=== PATIENT | female | born 1945 | race Caucasian/White ===

== ENCOUNTER 2018-08-10 11:25 | Day surgery (SDC) | payer MEDICARE, OTHER ==
[~2018-08-10] VITALS: Ht 157.5 cm; Wt 79.9 kg
[~2018-08-10 11:25] MED LIST: ALLEGRA ALLERG180 MG PO; ASPI81CH PO; CLARITIN10 MG PO; ELIQUIS5 MG PO; FLONASE ALLERG9.9 ML NS; Flecainide Acet50 MG PO; GABA100 PO; LISI5 PO; LOSA25 PO; METO25ER PO; Omeprazole20 M1 PO; ROSU5 PO; Toprol Xl25 MG PO; ZOLP5 PO; Zegerid 40 MG1 EACH PO
[2018-08-10] MEDS ORDERED: LISI20 (12:18)
== END 2018-08-10 15:25 | disposition home or self-care (01) ==
LOC: ORSCSDS 11:25
PROVIDERS: Podiatrist Foot & Ankle Surgery
PROC: 0QSN04Z Reposition Right Metatarsal with Internal Fixation Device, Open Approach (ICD-10-PCS; principal; 2018-08-10 12:30)
PROC: 0QSQ04Z Reposition Right Toe Phalanx with Internal Fixation Device, Open Approach (ICD-10-PCS; principal; 2018-08-10 12:30)
DX: M20.11 Hallux valgus (acquired), right foot (principal); M20.60 Acquired deformities of toe(s), unspecified, unspecified foot; I48.91 Unspecified atrial fibrillation; I10 Essential (primary) hypertension; K21.9 Gastro-esophageal reflux disease without esophagitis; E78.00 Pure hypercholesterolemia, unspecified; I50.9 Heart failure, unspecified; Z79.899 Other long term (current) drug therapy
CPT/HCPCS: C1713; C1769; J0690; J1100; J2370; J2405; J2765; J3010; J7120

== ENCOUNTER 2019-08-22 17:05 | Emergency (ER) | payer MEDICARE, OTHER ==
[~2019-08-22] VITALS: Ht 154.9 cm; Wt 81.7 kg
[~2019-08-22 17:05] MED LIST changes: +Flonase 0.05% N16 GM; +Flovent Diskus50 MCG INH; +LISI20; +LORA1SY PO; +Metoprolol Succ25 MG PO
[2019-08-22 18:16] LABS: BASOPHILS ABSOLUTE AUTO 0.04 K/mm3 (0.00-0.23); BASOPHILS PERCENT AUTO 1 % (0-2); EOSINOPHILS ABSOLUTE AUTO 0.19 K/mm3 (0.00-0.68); EOSINOPHILS PERCENT AUTO 3 % (0-6); Hematocrit 38.1 % (33.0-51.0); Hemoglobin 12.8 g/dL (11.5-16.0); IMMATURE GRAN PERCENT AUTO 0 % (0-1); LYMPHOCYTES ABSOLUTE AUTO 1.27 K/mm3 (0.84-5.20); LYMPHOCYTES PERCENT AUTO 22 % (21-46); MONOCYTES ABSOLUTE AUTO 0.38 K/mm3 (0.16-1.47); MONOCYTES PERCENT AUTO 7 % (4-13); Mean Corpuscular HGB 32.1 pg (26.0-34.0); Mean Corpuscular HGB Conc 33.6 g/dL (31.5-36.5); Mean Corpuscular Volume 96 fL (80-100); Mean Platelet Volume 9.4 fL (9.1-12.4); NEUTROPHILS PERCENT AUTO 67 % (41-73); Platelet Count 237 K/mm3 (150-400); Red Blood Cell Count 3.99 M/mm3 (3.80-5.20); White Blood Cell Count 5.68 K/mm3 (4.00-11.30)
[2019-08-22 18:28] LABS: Alanine Aminotransfer (ALT/SGP 22 U/L (12-78); Albumin, Blood 3.4 g/dL (3.4-5.0); Albumin/Globulin Ratio 0.9 (0.8-1.8); Alk Phos 75 U/L (50-136); Anion Gap 8 mmol/L (6-16); Aspartate Aminotrans (AST/SGOT 22 U/L (12-37); Bilirubin, Total 0.3 mg/dL (0.1-1.0); Blood Urea Nitrogen 30 mg/dL (8-24); Bun/Creatinine Ratio 31.6 (12.0-20.0); CO2, Blood 22 mmol/L (21-32); Chloride, Blood 108 mmol/L (98-108); Creatinine, Blood 0.95 mg/dL (0.40-1.00); Globulin, Blood 3.7 g/dL (2.2-4.0); Glomerular Filtration Rate >60 (60-); Glucose, Blood 138 mg/dL (70-99); Potassium, Blood 4.1 mmol/L (3.5-5.5); Sodium, Blood 138 mmol/L (136-145); Total Protein, Blood 7.1 g/dL (6.4-8.2); Troponin I <0.015 ng/mL (0.000-0.040)
[2019-08-22 18:58] LABS: Source, Urine Clean Catch
[2019-08-22 19:08] LABS: Bilirubin, Urine Neg (Neg); Blood, Urine 2+ (Neg); Glucose Qualitative, Urine Neg (Neg); Ketones, Urine 2+ (Neg); Leukocyte Esterase, Urine 1+ (Neg); Nitrite, Urine Neg (Neg); Protein, Urine 1+ (Neg); Urobilinogen, Urine NORM (Normal)
[2019-08-22 19:11] LABS: Appearance, Urine Hazy (Clear); Color, Urine Yellow (P-Yellow)
[2019-08-22] MEDS ORDERED: Allegra-D 24 H1 EACH PO (19:13)
[2019-08-22 19:15] LABS: Bacteria Mod /hpf; Squamous Epithelial Cells Rare /hpf (Few)
== END 2019-08-22 19:52 | disposition home or self-care (01) ==
LOC: ER 17:05
PROVIDERS: Emergency Medicine
DX: R10.9 Unspecified abdominal pain (principal); I48.91 Unspecified atrial fibrillation; Z91.040 Latex allergy status; Z79.899 Other long term (current) drug therapy; Z79.01 Long term (current) use of anticoagulants
CPT/HCPCS: 74176; 80053; 81001; 83690; 83735; 84484; 85025; 87086; 96361; 96374; 96375; 99284-25; A9270; A9270-GY; J1170; J1885; J2405; J7030

== ENCOUNTER → 2019-08-31 | Outpatient (CLI) | payer MEDICARE, OTHER ==
[~2019-08-31] MED LIST changes: +Allegra-D 24 H1 EACH PO
== END | disposition home or self-care (01) ==
LOC: PLD 07:32 → LAB SHORT 07:32
DX: D48.5 Neoplasm of uncertain behavior of skin (principal)
CPT/HCPCS: 88305

== ENCOUNTER → 2020-01-02 | Outpatient (CLI) | payer MEDICARE, OTHER ==
[2020-01-02 12:51] LABS: BASOPHILS ABSOLUTE AUTO 0.04 K/mm3 (0.00-0.23); BASOPHILS PERCENT AUTO 1 % (0-2); EOSINOPHILS ABSOLUTE AUTO 0.06 K/mm3 (0.00-0.68); EOSINOPHILS PERCENT AUTO 1 % (0-6); Hematocrit 34.6 % (33.0-51.0); Hemoglobin 11.6 g/dL (11.5-16.0); IMMATURE GRAN ABSOLUTE AUTO 0.02 K/mm3 (0.00-0.10); IMMATURE GRAN PERCENT AUTO 0 % (0-1); LYMPHOCYTES ABSOLUTE AUTO 1.09 K/mm3 (0.84-5.20); LYMPHOCYTES PERCENT AUTO 13 % (21-46); MONOCYTES ABSOLUTE AUTO 0.67 K/mm3 (0.16-1.47); MONOCYTES PERCENT AUTO 8 % (4-13); Mean Corpuscular HGB 31.4 pg (26.0-34.0); Mean Corpuscular HGB Conc 33.5 g/dL (31.5-36.5); Mean Corpuscular Volume 94 fL (80-100); Mean Platelet Volume 9.2 fL (9.1-12.4); NEUTROPHILS ABSOLUTE AUTO 6.53 K/mm3 (1.96-9.15); NEUTROPHILS PERCENT AUTO 78 % (41-73); Platelet Count 326 K/mm3 (150-400); RDW Coefficient Variation 12.8 % (11.7-14.2); RDW Standard Deviation 44.5 fL (35.1-46.3); Red Blood Cell Count 3.69 M/mm3 (3.80-5.20); White Blood Cell Count 8.41 K/mm3 (4.00-11.30)
[2020-01-02 13:00] LABS: Alanine Aminotransfer (ALT/SGP 56 U/L (12-78); Albumin, Blood 3.1 g/dL (3.4-5.0); Albumin/Globulin Ratio 0.6 (0.8-1.8); Alk Phos 131 U/L (40-126); Anion Gap 12 mmol/L (6-16); Aspartate Aminotrans (AST/SGOT 54 U/L (12-37); Bilirubin, Total 0.5 mg/dL (0.1-1.0); Blood Urea Nitrogen 11 mg/dL (8-24); Bun/Creatinine Ratio 12.9 (12.0-20.0); CO2, Blood 26 mmol/L (21-32); Calcium, Blood 8.8 mg/dL (8.5-10.1); Chloride, Blood 98 mmol/L (98-108); Creatinine, Blood 0.85 mg/dL (0.40-1.00); Glomerular Filtration Rate >60 (60-); Glucose, Blood 99 mg/dL (70-99); Potassium, Blood 3.4 mmol/L (3.5-5.5); Sodium, Blood 136 mmol/L (136-145); Total Protein, Blood 8.1 g/dL (6.4-8.2)
== END | disposition home or self-care (01) ==
LOC: LAB SHORT 12:46 → LAB EV 12:46
PROVIDERS: Physician Assistant
DX: R10.9 Unspecified abdominal pain (principal)
CPT/HCPCS: 80053; 83690; 85025

== ENCOUNTER → 2020-01-26 | Outpatient (CLI) | payer MEDICARE, OTHER | END | disposition home or self-care (01) | LOC: PLD 07:45 → LAB SHORT 07:45 | DX: D48.5 Neoplasm of uncertain behavior of skin (principal) | CPT/HCPCS: 88305 ==

== ENCOUNTER 2020-02-07 07:02 | Day surgery (SDC) | payer MEDICARE, OTHER ==
[~2020-02-07] VITALS: Wt 79.6 kg
--- NOTE | 2020-02-07 08:19 | NUR ---
RECEIVED REPORT FROM CHARLES GERMAN. TRANSFERRED PT TO RADIOLOGY VIA [facility].
--- NOTE | 2020-02-07 08:30 | NUR ---
0.4 MG NITRO SL X 1 FOR BP 128/79
--- NOTE | 2020-02-07 09:10 | NUR ---
Patient up to Ambulate independently. Gait steady. Discharge instructions reviewed with patient. Patient verbalizes understanding. Copy given to patient to take home. Discharged via AMBULATION to private car for ride home.
== END 2020-02-07 09:03 | disposition home or self-care (01) ==
LOC: ORD 07:02 → CT 07:02 → ORD 07:30 → CT 08:00 → ORD 09:03
DX: I25.10 Atherosclerotic heart disease of native coronary artery without angina pectoris (principal); I48.0 Paroxysmal atrial fibrillation; I10 Essential (primary) hypertension; E78.00 Pure hypercholesterolemia, unspecified; J18.0 Bronchopneumonia, unspecified organism; K76.89 Other specified diseases of liver; G47.33 Obstructive sleep apnea (adult) (pediatric); R63.5 Abnormal weight gain; Z68.33 Body mass index [BMI] 33.0-33.9, adult; Z79.899 Other long term (current) drug therapy; Z91.040 Latex allergy status; Z79.01 Long term (current) use of anticoagulants
CPT/HCPCS: 75574; Q9967

== ENCOUNTER 2020-02-19 09:36 | Emergency (ER) | payer MEDICARE, OTHER ==
[~2020-02-19] VITALS: Ht 167.6 cm; Wt 77.1 kg
[2020-02-19] MEDS ORDERED: ATOR20 PO (10:17)
[2020-02-19] MEDS ORDERED: NITROGLYCERIN 0.4 MG (10:17)
[2020-02-19] MEDS ORDERED: NITR.4SL SL (10:17)
[2020-02-19] MEDS ORDERED: XARELTO20 M1 PO (10:18)
[2020-02-19] MEDS ORDERED: METOPROLOL SUCC ER 5 (10:18)
[2020-02-19] MEDS ORDERED: LISI20 PO (10:19)
[2020-02-19] MEDS ORDERED: Flecainide Acet50 MG PO (10:20)
[2020-02-19] MEDS ORDERED: OMEP20ER PO (10:20)
[2020-02-19] MEDS ORDERED: GABA100 PO (10:21)
[2020-02-19] MEDS ORDERED: Flonase 0.05% N16 GM (10:22)
[2020-02-19] MEDS ORDERED: Oxycodone HCl5 M1 PO (10:23)
[2020-02-19 10:24] LABS: BASOPHILS ABSOLUTE AUTO 0.05 K/mm3 (0.00-0.23); BASOPHILS PERCENT AUTO 1 % (0-2); EOSINOPHILS PERCENT AUTO 2 % (0-6); Hematocrit 38.4 % (33.0-51.0); Hemoglobin 12.5 g/dL (11.5-16.0); IMMATURE GRAN ABSOLUTE AUTO 0.01 K/mm3 (0.00-0.10); IMMATURE GRAN PERCENT AUTO 0 % (0-1); LYMPHOCYTES ABSOLUTE AUTO 1.66 K/mm3 (0.84-5.20); LYMPHOCYTES PERCENT AUTO 19 % (21-46); MONOCYTES ABSOLUTE AUTO 0.54 K/mm3 (0.16-1.47); MONOCYTES PERCENT AUTO 6 % (4-13); Mean Corpuscular HGB 29.8 pg (26.0-34.0); Mean Corpuscular HGB Conc 32.6 g/dL (31.5-36.5); Mean Corpuscular Volume 92 fL (80-100); Mean Platelet Volume 9.2 fL (9.1-12.4); NEUTROPHILS ABSOLUTE AUTO 6.08 K/mm3 (1.96-9.15); NEUTROPHILS PERCENT AUTO 71 % (41-73); Platelet Count 282 K/mm3 (150-400); RDW Coefficient Variation 13.6 % (11.7-14.2); RDW Standard Deviation 46.2 fL (35.1-46.3); Red Blood Cell Count 4.19 M/mm3 (3.80-5.20); White Blood Cell Count 8.54 K/mm3 (4.00-11.30)
[2020-02-19 10:40] LABS: Alanine Aminotransfer (ALT/SGP 24 U/L (12-78); Albumin, Blood 3.2 g/dL (3.4-5.0); Albumin/Globulin Ratio 0.8 (0.8-1.8); Alk Phos 126 U/L (50-136); Anion Gap 6 mmol/L (6-16); Aspartate Aminotrans (AST/SGOT 23 U/L (12-37); Bilirubin, Total 0.4 mg/dL (0.1-1.0); Blood Urea Nitrogen 23 mg/dL (8-24); Bun/Creatinine Ratio 26.8 (12.0-20.0); CO2, Blood 24 mmol/L (21-32); Calcium, Blood 9.1 mg/dL (8.5-10.1); Chloride, Blood 106 mmol/L (98-108); Creatinine, Blood 0.86 mg/dL (0.40-1.00); Globulin, Blood 4.2 g/dL (2.2-4.0); Glomerular Filtration Rate >60 (60-); Glucose, Blood 109 mg/dL (70-99); Potassium, Blood 4.1 mmol/L (3.5-5.5); Sodium, Blood 136 mmol/L (136-145); Total Protein, Blood 7.4 g/dL (6.4-8.2); Troponin I <0.015 ng/mL (0.000-0.040)
== END 2020-02-19 14:04 | disposition home or self-care (01) ==
LOC: ER 09:36
PROVIDERS: Emergency Medicine
DX: R07.9 Chest pain, unspecified (principal); R10.11 Right upper quadrant pain; I48.91 Unspecified atrial fibrillation; I25.10 Atherosclerotic heart disease of native coronary artery without angina pectoris; Z91.040 Latex allergy status; Z79.899 Other long term (current) drug therapy
CPT/HCPCS: 71046; 80053; 83690; 84484; 85025; 93005; 93010; 99285-25; A9270-GY

== ENCOUNTER 2020-03-14 06:54 | Day surgery (SDC) | payer MEDICARE, OTHER ==
[~2020-03-14] VITALS: Ht 154.9 cm; Wt 81.0 kg
[~2020-03-14 06:54] MED LIST changes: +ALBU90OI INH; +ATOR20 PO; +Isosorbide Mono30 MG; +LISI20 PO; +METOPROLOL SUCC ER 5 PO; +NITR.4SL SL; +NITROGLYCERIN 0.4 MG; +OMEP20ER PO; +Oxycodone HCl5 M1 PO; +XARELTO20 M1 PO
[2020-03-14] MEDS ORDERED: METO50ER PO (07:49)
--- NOTE | 2020-03-14 09:40 | NUR ---
PT TO RECOVERY POST PROCEUDRE. PT IS DROWSY, BUT CONVERSING APPROPRIATELY, DENIES PAIN OR DISCOMFORT. MONITOR SR 60'S, B/P 111/72, AFEBRILE, SPO2 95-97% RA. R RADIAL SITE NO SWELLING/HEMATOMA, TR BAND IN PLACE.
--- NOTE | 2020-03-14 12:38 | NUR ---
PT AMB TO THE BATHROOM, GAIT STEADY; SITE UNCHANGED WITH ACTIVITY. PT DRESSING SELF WITHOUT ISSUE.
--- NOTE | 2020-03-14 12:49 | NUR ---
TR BAND REMOVED, CLOTH DOT AND WRIST IMMOBILIZER PLACED-IV REMOVED, CANNULA INTACT. PT HAVING EVENT MONITOR PLACED PRIOR TO DISCHARGE.
--- NOTE | 2020-03-14 13:03 | NUR ---
PT HAD EVENT MONITOR PLACED. PT RECEIVED DISCHARGE INSTRUCTIONS, SITE MANAGEMENT, MED LIST AND AFTER CARE INSTRUCTIONS; VERBALIZED GOOD UNDERSTANDING. PT LEFT FACILITY VIA W/C, CONDITION STABLE.
== END 2020-03-14 13:03 | disposition home or self-care (01) ==
LOC: MHTC 06:54
DX: I25.119 Atherosclerotic heart disease of native coronary artery with unspecified angina pectoris (principal); I10 Essential (primary) hypertension; I48.0 Paroxysmal atrial fibrillation; E78.5 Hyperlipidemia, unspecified; R94.30 Abnormal result of cardiovascular function study, unspecified; K21.9 Gastro-esophageal reflux disease without esophagitis; Z79.899 Other long term (current) drug therapy; Z79.51 Long term (current) use of inhaled steroids; Z79.82 Long term (current) use of aspirin; Z79.01 Long term (current) use of anticoagulants; Z87.891 Personal history of nicotine dependence
CPT/HCPCS: 76937; 85347; 93454; 93571; 99152; 99153; C1769; C1887; C1894; J1644; J2250; J3010; J7030; Q9967

== ENCOUNTER 2020-08-11 07:30 | Day surgery (SDC) | payer MEDICARE, OTHER ==
[~2020-08-11] VITALS: Ht 157.5 cm; Wt 79.5 kg
[~2020-08-11 07:30] MED LIST changes: +ALLEGRA ALLERGY60 MG PO; +FLUT.05NI; +METO50ER PO; +Prinivil10 MG PO
--- NOTE | 2020-08-11 10:30 | NUR ---
08/11/20 1030 Majo Monteiro PT RESTING COMFORTABLY IN CHAIR, CALL LIGHT WITHIN REACH. PT DENIES PAIN OR NAUSEA AT THIS TIME. TOLERATING PO INTAKE.
== END 2020-08-11 11:09 | disposition home or self-care (01) ==
LOC: ORSCSDS 07:30
PROVIDERS: Podiatrist Foot & Ankle Surgery
PROC: 0SGP04Z Fusion of Right Toe Phalangeal Joint with Internal Fixation Device, Open Approach (ICD-10-PCS; principal; 2020-08-11 08:45)
DX: M20.5X1 Other deformities of toe(s) (acquired), right foot (principal); I10 Essential (primary) hypertension; I48.91 Unspecified atrial fibrillation; Z79.01 Long term (current) use of anticoagulants; G47.33 Obstructive sleep apnea (adult) (pediatric); E78.5 Hyperlipidemia, unspecified; Z79.899 Other long term (current) drug therapy
CPT/HCPCS: C1713; J0171; J0690; J1100; J1200; J2405; J2704; J3010; J7120

== ENCOUNTER → 2020-09-05 | Outpatient (CLI) | payer MEDICARE, OTHER | LOC: PLD 10:52 → LAB SHORT 10:52 | DX: D48.5 Neoplasm of uncertain behavior of skin (principal) | CPT/HCPCS: 88305 ==

== ENCOUNTER → 2021-12-26 | Outpatient (CLI) | payer MEDICARE, OTHER ==
[2021-12-26 08:29] LABS: Source, Urine Clean Catch
[2021-12-26 12:06] LABS: Bilirubin, Urine Neg (Neg); Color, Urine Yellow (P-Yellow); Glucose Qualitative, Urine Neg (Neg); Ketones, Urine Neg (Neg); Nitrite, Urine Neg (Neg); Protein, Urine Neg (Neg); Urobilinogen, Urine NORM (Normal)
[2021-12-26 12:15] LABS: Appearance, Urine Hazy (Clear); Blood, Urine 2+ (Neg); Leukocyte Esterase, Urine 2+ (Neg)
[2021-12-26 12:19] LABS: Red Blood Cells, Urine 0-2 /hpf (0-2)
[2021-12-26 12:20] LABS: Bacteria Many /hpf; Squamous Epithelial Cells Rare /hpf (Few)
== END | disposition home or self-care (01) ==
LOC: LAB SHORT 08:28
PROVIDERS: Internal Medicine
DX: R30.0 Dysuria (principal)
CPT/HCPCS: 81001; 87077; 87086; 87186

== ENCOUNTER → 2022-02-01 | Outpatient (CLI) | payer MEDICARE, OTHER ==
[2022-02-01 09:41] LABS: Source, Urine Clean Catch
[2022-02-01 11:18] LABS: Bilirubin, Urine Neg (Neg); Blood, Urine 2+ (Neg); Glucose Qualitative, Urine Neg (Neg); Ketones, Urine 1+ (Neg); Leukocyte Esterase, Urine 2+ (Neg); Nitrite, Urine Neg (Neg); Protein, Urine 1+ (Neg); Specific Gravity, Urine 1.015 (1.003-1.022); Urobilinogen, Urine NORM (Normal); pH, Urine 6.5 (5.0-8.0)
[2022-02-01 11:32] LABS: Appearance, Urine Hazy (Clear); Color, Urine Pale Yellow (P-Yellow)
[2022-02-01 11:33] LABS: Bacteria Mod /hpf; Mucus Light (0-Heavy); Squamous Epithelial Cells Few /hpf (Few)
[2022-02-01 11:34] LABS: Amorphous Mod (0-Heavy); Renal Epithelial Rare /hpf (0-Rare)
== END ==
LOC: LAB SHORT 09:40
PROVIDERS: Internal Medicine
DX: N39.0 Urinary tract infection, site not specified (principal)
CPT/HCPCS: 81001; 87077; 87086; 87186

== ENCOUNTER → 2022-07-23 | Outpatient (CLI) | payer MEDICARE, OTHER | END | disposition home or self-care (01) | LOC: LAB SHORT 10:57 → PLD 10:57 | DX: D48.5 Neoplasm of uncertain behavior of skin (principal) | CPT/HCPCS: 88305 ==

== ENCOUNTER 2024-03-22 09:55 | Emergency (ER) | payer MEDICARE ==
[~2024-03-22] VITALS: Ht 165.1 cm; Wt 72.6 kg
[~2024-03-22 09:55] MED LIST changes: +ASPI81CH; +IBUP200; +Voltaren100 GM
[2024-03-22 11:07] LABS: BASOPHILS ABSOLUTE AUTO 0.04 K/mm3 (0.00-0.23); BASOPHILS PERCENT AUTO 1 % (0-2); EOSINOPHILS PERCENT AUTO 3 % (0-6); Hematocrit 38.1 % (33.0-51.0); Hemoglobin 12.4 g/dL (11.5-16.0); IMMATURE GRAN PERCENT AUTO 0 % (0-1); LYMPHOCYTES ABSOLUTE AUTO 1.92 K/mm3 (0.84-5.20); LYMPHOCYTES PERCENT AUTO 32 % (21-46); MONOCYTES ABSOLUTE AUTO 0.44 K/mm3 (0.16-1.47); MONOCYTES PERCENT AUTO 7 % (4-13); Mean Corpuscular HGB 32.3 pg (26.0-34.0); Mean Corpuscular HGB Conc 32.5 g/dL (31.5-36.5); Mean Corpuscular Volume 99 fL (80-100); Mean Platelet Volume 9.1 fL (9.1-12.4); NEUTROPHILS ABSOLUTE AUTO 3.36 K/mm3 (1.96-9.15); NEUTROPHILS PERCENT AUTO 56 % (41-73); Platelet Count 208 K/mm3 (150-400); RDW Coefficient Variation 13.4 % (11.7-14.2); Red Blood Cell Count 3.84 M/mm3 (3.80-5.20); White Blood Cell Count 5.96 K/mm3 (4.00-11.30)
[2024-03-22 11:18] LABS: Albumin, Blood 3.3 g/dL (3.4-5.0); Albumin/Globulin Ratio 0.9 (0.8-1.8); Bilirubin, Total 0.5 mg/dL (0.1-1.0); Bun/Creatinine Ratio 24.3 (12.0-20.0); Calcium, Blood 9.1 mg/dL (8.5-10.1); Creatinine, Blood 0.95 mg/dL (0.40-1.00); Globulin, Blood 3.7 g/dL (2.2-4.0); Potassium, Blood 4.2 mmol/L (3.5-5.5)
[2024-03-22] MEDS ORDERED: GABA400 PO (13:39)
[2024-03-22] MEDS ORDERED: EZET10 PO (13:40)
[2024-03-22] MEDS ORDERED: ELIQUIS5 M2 PO (13:40)
[2024-03-22] MEDS ORDERED: ALLEGRA ALLERG180 MG PO (13:41)
[2024-03-22] MEDS ORDERED: IBUP600 (13:41)
[2024-03-22 14:36] VITALS: BP 136/99
== END 2024-03-22 15:05 | disposition home or self-care (01) ==
LOC: ER 09:55
PROVIDERS: Physician Assistant
DX: R00.2 Palpitations (principal); R06.02 Shortness of breath; Z91.040 Latex allergy status; Z79.899 Other long term (current) drug therapy; Z79.82 Long term (current) use of aspirin; Z96.653 Presence of artificial knee joint, bilateral
CPT/HCPCS: 71046; 80053; 84484; 85025; 93005; 93010; 99285-25

== ENCOUNTER 2025-05-13 06:12 | Day surgery (SDC) | payer MEDICARE, OTHER ==
[~2025-05-13] VITALS: Ht 157.5 cm; Wt 72.4 kg
[~2025-05-13 06:12] MED LIST changes: +ELIQUIS5 M2 PO; +EZET10 PO; +GABA400 PO; +IBUP600; +Lactated Ringer's 1,000 ML IV ONE
[2025-05-13] MEDS ORDERED: CeFAZolin Sodium 2,000 MG VIAL ONE (06:36)
[2025-05-13] MEDS ORDERED: Bupivacaine 0.5% W/EPI 1:200000 SDV 30 ML Vial ONE (06:41)
[2025-05-13] MEDS ORDERED: propofoL 0 ML IV ONE (06:53)
[2025-05-13] MEDS ORDERED: FentaNYL Citrate 50 MCG/ML 2 ML Injection ONE (06:53)
[2025-05-13] MEDS ORDERED: Lactated Ringer's 1,000 ML IV ONE (06:55)
[2025-05-13] MEDS ORDERED: Glycopyrrolate 0.2 MG/ML 5ML VIAL ONE (07:41)
[2025-05-13] MEDS ORDERED: ePHEDrine Sulfate 50 MG/ML 1ML Injection ONE (07:43)
[2025-05-13] MEDS ORDERED: Esmolol HCL 10 MG/ML 10ML VIAL ONE (08:06)
[2025-05-13 08:27] VITALS: BP 113/82
[2025-05-13] MEDS ORDERED: OxyCODONE 5 mg/Acetamin 325 mg TABLET ONE (09:09)
--- NOTE | 2025-05-13 09:11 | NUR ---
05/13/25 0911 VÍCTOR BENSON PT CONTINUES TO DENY PAIN AND NAUSEA. DR BENSON WAS IN SPEAKING WITH PT AND WHAT SHE HAD DONE. PT IS TO GET A PO PAIN MED PRIOR TO DC HER NUMBNESS MAY WORK FOR ANOTHER 4-6 HOURS AND WILL NOT HAVE HER SON GO TO THE PHARMACY UNTIL AFTER 5PM TONIGHT. PT EATING AND DRINKING WO DIFF.
== END 2025-05-13 09:38 | disposition home or self-care (01) ==
LOC: ORSCSDS 06:12
PROVIDERS: Podiatrist Foot & Ankle Surgery
PROC: 0SGQ04Z Fusion of Left Toe Phalangeal Joint with Internal Fixation Device, Open Approach (ICD-10-PCS; principal; 2025-05-13 07:30)
DX: M20.42 Other hammer toe(s) (acquired), left foot (principal); I48.91 Unspecified atrial fibrillation; I25.10 Atherosclerotic heart disease of native coronary artery without angina pectoris; E78.5 Hyperlipidemia, unspecified; Z87.891 Personal history of nicotine dependence; G47.33 Obstructive sleep apnea (adult) (pediatric); K21.9 Gastro-esophageal reflux disease without esophagitis; I12.9 Hypertensive chronic kidney disease with stage 1 through stage 4 chronic kidney disease, or unspecified chronic kidney disease; N18.9 Chronic kidney disease, unspecified; E66.9 Obesity, unspecified; Z68.29 Body mass index [BMI] 29.0-29.9, adult; Z79.899 Other long term (current) drug therapy
CPT/HCPCS: A6253; A9270; C1776; J0690; J2704; J3010; J7120